=== PATIENT | female | born 1960 | race Caucasian/White ===

== ENCOUNTER 2022-08-16 03:15 | Emergency (ER) | payer OTHER ==
[2022-08-16] MEDS ORDERED: Ciprofloxacin 0.3% Ophth Soln 2.5 ML Bottle EARBOTH ONE (03:39)
== END 2022-08-16 03:55 | disposition home or self-care (01) ==
LOC: VM.ED 03:15
DX: H10.9 Unspecified conjunctivitis (principal); Z88.1 Allergy status to other antibiotic agents
CPT/HCPCS: 99282; 99283; A9270